=== PATIENT | female | born 2000 | race Two or more races ===

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

== ENCOUNTER 2022-11-17 18:16 | Emergency (ER) | payer OTHER ==
[~2022-11-17] VITALS: Ht 177.8 cm; Wt 63.5 kg
[2022-11-18] MEDS ORDERED: DOLOGESIC-DF 51 EACH PO (02:10)
== END 2022-11-18 02:20 ==
LOC: ER 18:16 → EMR PED 18:20 → ER 18:20 → EMR PED 11-18 02:20
DX: S20.211A Contusion of right front wall of thorax, initial encounter (principal); W51.XXXA Accidental striking against or bumped into by another person, initial encounter; Y93.66 Activity, soccer; Y92.89 Other specified places as the place of occurrence of the external cause; Z88.6 Allergy status to analgesic agent